=== PATIENT | male | born 1945 | race Caucasian/White ===

== ENCOUNTER 2025-05-05 05:49 | Inpatient (IN) | payer MEDICARE, OTHER, SELFPAY ==
[2025-05-02 08:58] LABS: Hematocrit 45.3 % (39.0-52.0); Hemoglobin 15.0 g/dL (13.0-18.0); Mean Corp Hgb Conc. 33.1 g/dL (33.0-37.0); Mean Corpuscular Volume 93.0 fL (80.0-94.0); Platelet Count 182 10^3/uL (130-400); Red Cell Dist. Width 12.9 % (11.5-14.5)
[2025-05-02 09:06] LABS: INR 1.00; PT 13.5 Sec (11.4-14.6)
[2025-05-02 09:07] LABS: APTT 24.7 Sec (23.4-35.0)
[2025-05-02 09:29] LABS: Glycohemoglobin (HgbA1c) 6.0 % (4.0-5.6)
[2025-05-02 10:02] LABS: ALT (SGPT) 33 U/L (0-50); AST (SGOT) 32 U/L (17-59); Albumin 4.5 g/dl (3.5-5.0); Alkaline Phosphatase 65 U/L (38-126); Blood Urea Nitrogen 27 mg/dl (9-20); Calcium 9.4 mg/dl (8.4-10.2); Carbon Dioxide 32 mmol/L (22-30); Chloride 103 mmol/L (98-107); Glucose 115 mg/dl (70-99); Potassium 4.6 mmol/L (3.5-5.1); Sodium 142 mmol/L (135-145); Total Protein 7.6 g/dl (6.3-8.2); eGFR > 60.00
[2025-05-02 14:09] VITALS: BMI 31.4
[2025-05-05] VITALS (11 sets, daily range): BP systolic 121–142; BP diastolic 59–77; PULSE 66; BMI 31.4; BMI 32.3
[2025-05-05 06:38] LABS: Glucose - Point of Care 107 mg/dl (70-99)
[2025-05-05] MEDS: NORMOSOL-R/PLASMALYTE-A 1000 IV ×2 (06:48→18:06)
[2025-05-05] MEDS: TYLENOL 1000 MG PO (06:48)
[2025-05-05] MEDS: HEPARIN 5000 UNITS SC (06:48)
--- NOTE | 2025-05-05 13:43 | W.IMMPOSTOP ---
Surgical Immed Post Op Note
-
Primary Surgeon: Jluis Rothman MD
Assistants: Josseline Asher CRYSTAL GAZER and Rashi Francisco MD, PGYVI
Pre-op Diagnosis: Recurrent sigmoid diverticulitis
Post-op Diagnosis: Same
Procedure Performed: Robotic sigmoid colectomy with takedown of splenic flexure, intracorporeal anastomosis
Anesthesia Type: GET
Specimen / Cultures: Sigmoid colon (suture is proximal)
Estimated Blood Loss: 30cc
Complications: None
Operative Findings: Chronic proximal sigmoid diverticulitis
Small right direct inguinal hernia
28mm EEA
Normal leak test
Patient's family updated in the waiting room.
[2025-05-05 14:05] LABS: Glucose - Point of Care 171 mg/dl (70-99)
[2025-05-05] MEDS: TORADOL 15 MG IV ×2 (18:02→22:24)
[2025-05-05 18:03] LABS: Glucose - Point of Care 129 mg/dl (70-99)
[2025-05-05] MEDS: TYLENOL 650 MG PO ×2 (18:03→20:29)
[2025-05-05] MEDS: ERYTHROMYCIN 0.5% OPHTHALMIC OINTMENT 1 APPLIC OPHTH (18:04)
[2025-05-05] MEDS: DILAUDID 0.5 MG IV (20:27)
[2025-05-05 21:37] LABS: Glucose - Point of Care 177 mg/dl (70-99)
[2025-05-05] MEDS: FLOMAX 0.4 MG PO (22:23)
[2025-05-05] MEDS: LIPITOR 20 MG PO (22:24)
[2025-05-05] MEDS: PROSCAR 5 MG PO (22:24)
[2025-05-05] MEDS: TOPROL XL 25 MG PO (22:24)
--- NOTE | 2025-05-05 23:35 | PTCARENOTE ---
Assumed care on pt at 1900, aaox3, resting in bed with no c/o pain, nausea, vomiting. tolerated diet well, burping and passing gas frequently. Pt c/o feeling stiff and requesting to sit on the recliner chair. Able to ambulate with assist x1 from bed
to chair, steady gait. VSS. Call guerrero within reach.
[2025-05-06] VITALS (7 sets, daily range): BP systolic 106–119; BP diastolic 42–54; PULSE 71; BMI 32.3
[2025-05-06] MEDS: TYLENOL PO ×2 (01:07→12:34)
[2025-05-06] MEDS: NORMOSOL-R/PLASMALYTE-A 1000 IV (01:34)
[2025-05-06] MEDS: TYLENOL 650 MG PO ×4 (04:01→19:38)
[2025-05-06] MEDS: TORADOL 15 MG IV ×4 (04:01→21:34)
[2025-05-06 06:29] LABS: Hematocrit 41.0 % (39.0-52.0); Hemoglobin 13.8 g/dL (13.0-18.0); Mean Corp Hgb Conc. 33.7 g/dL (33.0-37.0); Mean Corpuscular Volume 91.7 fL (80.0-94.0); Nucleated Red Blood Cells % 0 % (-); Platelet Count 167 10^3/uL (130-400); Red Cell Dist. Width 12.8 % (11.5-14.5)
[2025-05-06 06:38] LABS: Blood Urea Nitrogen 21 mg/dl (9-20); Calcium 8.2 mg/dl (8.4-10.2); Carbon Dioxide 31 mmol/L (22-30); Chloride 100 mmol/L (98-107); Estimated Creatinine Clearance 77 ml/min; Glucose 124 mg/dl (70-99); Potassium 4.3 mmol/L (3.5-5.1); Sodium 135 mmol/L (135-145); eGFR > 60.00
[2025-05-06 09:22] LABS: Glucose - Point of Care 96 mg/dl (70-99)
[2025-05-06] MEDS: ASPIR LOW (ENTERIC COATED) 81 MG PO (10:17)
[2025-05-06] MEDS: ZESTRIL 10 MG PO (10:18)
[2025-05-06] MEDS: PROTONIX 40 MG PO (10:19)
[2025-05-06] MEDS: ORETIC 12.5 MG PO (10:19)
[2025-05-06] MEDS: ZYRTEC 10 MG PO (10:19)
[2025-05-06 11:22] LABS: Glucose - Point of Care 139 mg/dl (70-99)
--- NOTE | 2025-05-06 13:29 | W.PN.CRS1 ---
Addendum entered and electronically signed by Rubens Perera MD 05/06/25 14:23:
I saw and examined the patient.
The DRUM SANDER OFFBEARER's note was reviewed and I agree with the note.
Comment:
Tolerating clears without N/V, passing flatus, no BM yet. Pain controlled.
AFVSS, ABD soft, nondistended, appropriately tender near incisions, incisions well-approximated without erythema or drainage
WBC 9.5, Hb 13.8, CR 0.9, UOP 1.5 L
�Advance to low fiber
� DVT PPx with Lovenox
� Pain control with Tylenol, Toradol, oxycodone and Dilaudid as needed
� DC Dodd, monitor for void
� Continue home meds
� Encourage IS, OOB
Original Note:
Today's Communication / Plan
-
voiding trial
advance diet
Assessment/Plan
-
79 yo male with a h/o recurrent sigmoid diverticulitis POD #1 Robotic sigmoid colectomy with takedown of splenic flexure
AFVSS
Post op labs stable
Tolerating clears, passing flatus
Plan:
D/C dodd for voiding trial
Advance to LRD
d/c IVF
Scheduled toradol and tylenol with prn oxycodone/dilaudid
Lovenox 40mg initiated for VTE ppx, scds while in bed
OR path pending
OOB/Ambulate
Subjective Data
Subjective Data
Date of Service: May 06, 2025
Pt seen and examined at bedside with Dr. Perera. Denies n/v. OOB and ambulating. Passing some flatus. Some soreness with movement but pain well managed.
Objective Data
-
Vital Signs
Temp Pulse Resp BP Pulse Ox
98.3 F 51 17 119/54 96
05/06/25 11:28 05/06/25 11:28 05/06/25 11:28 05/06/25 11:28 05/06/25 11:28
Intake & Output
05/05/25 05/06/25 05/07/25
06:59 06:59 06:59
Intake Total 1490 / 1490
Output Total 1570 / 1570
Balance -80 / -80
Intake:
Oral fluids 240 / 240
IV fluids (Total) 1250 / 1250
normosol 50 / 50
Output:
Urine, Dodd 1570 / 1570
Lab Results
05/06/25 05:27
05/06/25 05:27
Physical Exam
-
General: No Acute Distress
HEENT: Grossly Normal
Abdomen: Soft, Non Distended and Tender (expected incisional tenderness)
Skin: Warm and Dry
Incision: Clear, Dry, Intact
[2025-05-06] MEDS: LOVENOX 40 MG SC (16:02)
[2025-05-06 16:29] LABS: Glucose - Point of Care 117 mg/dl (70-99)
[2025-05-06] MEDS: TOPROL XL 25 MG PO (21:35)
[2025-05-06] MEDS: PROSCAR 5 MG PO (21:35)
[2025-05-06] MEDS: LIPITOR 20 MG PO (21:36)
[2025-05-06] MEDS: FLOMAX 0.4 MG PO (21:36)
[2025-05-06 21:58] LABS: Glucose - Point of Care 125 mg/dl (70-99)
[2025-05-07] MEDS: TYLENOL PO (00:02)
[2025-05-07 02:47] VITALS: BP 109/51
[2025-05-07] MEDS: TYLENOL 650 MG PO ×3 (03:50→13:32)
[2025-05-07] MEDS: TORADOL 15 MG IV ×2 (03:50→09:24)
[2025-05-07 06:00] VITALS: BMI 32.5
[2025-05-07 07:15] VITALS: BP 127/59
[2025-05-07 08:29] LABS: Glucose - Point of Care 101 mg/dl (70-99)
[2025-05-07] MEDS: ORETIC 12.5 MG PO (09:25)
[2025-05-07] MEDS: ZYRTEC 10 MG PO (09:25)
[2025-05-07] MEDS: PROTONIX 40 MG PO (09:25)
[2025-05-07] MEDS: ASPIR LOW (ENTERIC COATED) 81 MG PO (09:26)
[2025-05-07] MEDS: ZESTRIL 10 MG PO (09:26)
[2025-05-07 11:39] LABS: Glucose - Point of Care 90 mg/dl (70-99)
--- NOTE | 2025-05-07 11:51 | W.PN.CRS1 ---
Addendum entered and electronically signed by Rubens Perera MD 05/07/25 15:47:
I saw and examined the patient.
The DREDGE MATE's note was reviewed and I agree with the note.
Comment:
Had some nausea this morning, but states that he feels better. Passing flatus and had some liquid stool. Pain controlled. Patient is OOB
AFVSS, ABD soft, nondistended, appropriately tender; incisions well-approximated with some surrounding ecchymosis, no erythema or purulent drainage
No labs today
�Continue low fiber diet; will monitor throughout the day; if any N/V, will back down
�Continue pain control with Tylenol, Toradol, oxycodone, Dilaudid as needed
� Continue home meds
� Encourage I-S/OOB
� Continue DVT PPx with Lovenox
Dispo�if tolerating low fiber well without any concerns, possible DC this afternoon versus tomorrow
Original Note:
Today's Communication / Plan
-
dispo planning
Assessment/Plan
-
79 yo male with a h/o recurrent sigmoid diverticulitis POD #2 Robotic sigmoid colectomy with takedown of splenic flexure
AFVSS
Tolerating diet but did have mild nausea with breakfast, now resolved. Belching on exam
Voiding well
Passing flatus and BM x2
Plan:
Continue LRD
Scheduled toradol and tylenol with prn oxycodone/dilaudid
Lovenox 40mg initiated for VTE ppx, scds while in bed
OR path pending
OOB/Ambulate
Tentative d/c later today if tolerating diet
Subjective Data
Procedure
05/05/25 Robotic sigmoid colectomy with takedown of splenic flexure, intracorporeal anastomosis
Subjective Data
Date of Service: May 07, 2025
Pt seen and examined at bedside with Dr. Perera. Wave of nausea after breakfast, now resolved. Passing flatus/stools. Voiding well. Minimal pain.
Objective Data
-
Vital Signs
Temp Pulse Resp BP Pulse Ox
98.5 F 51 16 127/59 94
05/07/25 07:15 05/07/25 07:15 05/07/25 07:15 05/07/25 07:15 05/07/25 09:35
Intake & Output
05/06/25 05/07/25 05/08/25
06:59 06:59 06:59
Intake Total 1490 / 1490 1620 / 1620 240 / 240
Output Total 1570 / 1570 600 / 600
Balance -80 / -80 1020 / 1020 240 / 240
Intake:
Oral fluids 240 / 240 900 / 900 240 / 240
IV fluids (Total) 1250 / 1250 720 / 720
normosol 50 / 50
Output:
Urine, Mast 1570 / 1570 450 / 450
Urine, Voided 150 / 150
Other:
Number of approximated SMALL 3
amounts of urine
Number of approximated MODERATE 2 2
amounts of urine
Number of unmeasured liquid
stools
Rectum 2
Lab Results
05/06/25 05:27
05/06/25 05:27
Physical Exam
-
General: No Acute Distress
HEENT: Grossly Normal
Abdomen: Soft, Non Distended and Tender (expected incisional tenderness)
Skin: Warm and Dry
Incision: Clear, Dry, Intact
--- NOTE | 2025-05-07 12:47 | CM ---
Met with patient at bedside; IMM explained; form signed @ 1240
Pharmacy verified: [facility] [employer] @ [address] [facility] [address] [facility]
Lives w/ ; multilevel home; 2 steps to enter; 12 steps to 2nd floor; full bath on first floor; plans to sleep on Recliner on the first floor living room
PLOF: independent with ambulation, stairs, ADLs; retired;
DME: CPAP
will transport home
NO SNF or recent Home Health utilization history
Plan: Discharge to home today if he tolerates diet; no needs
[2025-05-07 15:10] VITALS: BP 128/53
[2025-05-07 16:45] LABS: Glucose - Point of Care 87 mg/dl (70-99)
--- NOTE | 2025-05-07 17:05 | W.DS.TRANS ---
Addendum entered and electronically signed by ORA Saravia 05/08/25 16:27:
dictated [id number]
Original Note:
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
-
Discharge Instructions:
Discharge Diagnosis/Procedures Robotic sigmoid colectomy for recurrent sigmoid
diverticulitis
Diet Low Fiber,As tolerated
Activity No strenuous activity
Additional Activity Do not lift over 10lbs (gallon of milk)
Driving Restrictions Wait until comfortable twisting/off narcotics
Bathing Restrictions OK to Shower
Wound Care Allow the glue to flake off your incisions on
its own over the next 2-3 weeks. Avoid picking
or scrubbing off. Do not soak in tubs or pools
or go swimming until incisions healed.
Instructions: Low-fiber diet
Stand-Alone Forms:
Changes to Home Medications: No
Discharge Medications:
DC Medications w/original date entered in [facility]
Fish Oil 1,200 mg PO DAILY 05/02/25
acetaminophen 325 mg tablet (Tylenol) 650 mg PO BID Pain 05/02/25
aspirin 81 mg tablet 81 mg PO DAILY 05/02/25
atorvastatin 20 mg tablet 20 mg PO HS 05/02/25
benazepril 10 mg tablet 10 mg PO DAILY 05/02/25
cetirizine 10 mg tablet 10 mg PO DAILY 05/02/25
cinnamon bark 500 mg capsule (Cinnamon) 1,000 mg PO DAILY 05/02/25
empagliflozin 25 mg tablet (Jardiance) 25 mg PO DAILY 05/02/25
finasteride 5 mg tablet 5 mg PO HS 05/02/25
hydrochlorothiazide 12.5 mg tablet 12.5 mg PO DAILY 05/02/25
metoprolol succinate 25 mg tablet,extended release 24 hr 25 mg PO HS 05/02/25
oribpzuqowdg-qqejhixw-ajveyo tablet 1 tab PO DAILY 05/02/25
omeprazole 20 mg tablet,delayed release 20 mg PO DAILY 05/02/25
psyllium husk 3.4 gram/5.4 gram oral powder (Metamucil) 1 tbsp PO DAILY 05/02/25
Held on 05/07/25. Instructions: Resume on 05/21/25.
tamsulosin 0.4 mg capsule 0.4 mg PO HS 05/02/25
oxycodone 5 mg tablet 5 mg PO Q4HPRN PRN breakthrough/severe pain #15 tabs 05/07/25
Home Medication Changes
Pending Results: No
[2025-05-08 08:58] LABS: B.E. - POC 0.7 mmol/L; Glucose - POC 156 mg/dl (70-99); HCO3 - POC 28 mmol/L (21-28); Hematocrit - POC 40 % PCV (42-52); Hemodilution- POC No; Hemoglobin Calculated - POC 13.7; Ionized Calcium - POC 1.14 mmol/L (1.15-1.33); Lactate - POC 0.90 mmol/L (0.36-0.75); O2 Saturation %Calculated-POC 99.5 % (94-98); PCO2 - POC 53 mmHg (35-48); PO2 - POC 179 mmHg (83-108); Potassium - POC 3.5 mmol/L (3.5-5.1); Sodium - POC 139 mmol/L (136-145); Specimen Type - POC Arterial; pH - POC 7.33 (7.35-7.45)
== END 2025-05-07 18:00 | disposition home or self-care (01) | DRG 330 ==
LOC: 2 SOUTH 05:49
PROVIDERS: ADMITTING PHYSICIAN Surgery; FAMILY PHYSICIAN Family Medicine
PROC: 0DJD8ZZ Inspection of Lower Intestinal Tract, Via Natural or Artificial Opening Endoscopic (ICD-10-PCS; 2025-05-05)
PROC: 8E0W4CZ Robotic Assisted Procedure of Trunk Region, Percutaneous Endoscopic Approach (ICD-10-PCS; 2025-05-05)
PROC: 0DTN4ZZ Resection of Sigmoid Colon, Percutaneous Endoscopic Approach (ICD-10-PCS; 2025-05-05)
DX: K57.32 Diverticulitis of large intestine without perforation or abscess without bleeding (principal); I50.32 Chronic diastolic (congestive) heart failure; K86.1 Other chronic pancreatitis; K40.90 Unilateral inguinal hernia, without obstruction or gangrene, not specified as recurrent; K66.0 Peritoneal adhesions (postprocedural) (postinfection); E78.5 Hyperlipidemia, unspecified; G47.33 Obstructive sleep apnea (adult) (pediatric); E11.9 Type 2 diabetes mellitus without complications; I25.10 Atherosclerotic heart disease of native coronary artery without angina pectoris; I35.0 Nonrheumatic aortic (valve) stenosis; K21.9 Gastro-esophageal reflux disease without esophagitis; E66.01 Morbid (severe) obesity due to excess calories; I87.2 Venous insufficiency (chronic) (peripheral); I73.9 Peripheral vascular disease, unspecified; E78.2 Mixed hyperlipidemia; I11.0 Hypertensive heart disease with heart failure; Z68.35 Body mass index [BMI] 35.0-35.9, adult; Z95.0 Presence of cardiac pacemaker; Z79.84 Long term (current) use of oral hypoglycemic drugs; Z82.49 Family history of ischemic heart disease and other diseases of the circulatory system
CPT/HCPCS: 36415; 80048; 80053; 82962; 83036; 85025; 85027; 85610; 85730; 86850; 86900; 86901; 88307; 94660; 97162; J1335